=== PATIENT | female | born 1955 | race American Indian/Alaskan Native ===

== ENCOUNTER 2018-04-24 08:03 | Emergency (ER) | payer OTHER ==
[2018-04-24] MEDS ORDERED: BOOSTRIX IM ONE (09:20)
--- NOTE | 2018-04-24 09:25 | Emergency Department Report ---
Chief Complaint: Fall Stated Complaint: LACERATION ABOVE (R) EYE Time Seen by Provider: 04/24/18 09:13 - HPI History of Present Illness: 63 yo AA F presents to the ED after she fell earlier today and hit her head. No LOC. She has a right eyebrow lac. She complains of a headache and right elbow pain. She did not take anything for symptoms prior to presentation. Her PCP is Dr Morrison. She has a pmhx of liver transplant, previous ulcerative colitis. - ROS Review of Systems: Positive for headache, laceration and near syncope, right elbow pain negative for fever, nausea, vomiting, CP - Exam Vital Signs: Vital Signs 04/24/18 08:14 Temperature 98.5 F Pulse Rate 70 Respiratory 18 Rate Blood Pressure 142/89 O2 Sat by Pulse 100 Oximetry Physical Exam: Patient is awake and alert. Right eyebrow laceration about 1 cm. heart and lung sound normal to auscultation. No focal deficits. MSE screening note: Focused history and physical exam performed. Due to findings the following was ordered: I have ordered a CBC, CMP, troponin, TSH, EKG and CT head. Will update tetanus. ED Disposition for MSE Condition: Stable Referrals: PRIMARY CARE, [Primary Care Provider] - 3-5 Days
[2018-04-24 09:46] LABS: Basophils % (Auto) 0.4 % (0.0-1.8); Eosinophils # (Auto) 0.3 K/mm3 (0.0-0.4); Eosinophils % (Auto) 6.5 % (0.0-4.3); Hematocrit 33.9 % (30.3-42.9); Hemoglobin 11.4 gm/dl (10.1-14.3); Lymphocytes # (Auto) 0.9 K/mm3 (1.2-5.4); Lymphocytes % (Auto) 19.1 % (13.4-35.0); Mean Corpuscular HGB Conc 34 % (30-34); Mean Corpuscular Hemoglobin 33 pg (28-32); Mean Corpuscular Volume 97 fl (79-97); Monocytes # (Auto) 0.5 K/mm3 (0.0-0.8); Monocytes % (Auto) 9.9 % (0.0-7.3); Platelet Count 135 K/mm3 (140-440); Red Blood Count 3.49 M/mm3 (3.65-5.03); Red Cell Distribution Width 14.1 % (13.2-15.2)
[2018-04-24 10:07] LABS: Alanine Aminotransferase 28 units/L (7-56); Albumin 2.9 g/dL (3.9-5); BUN/Creatinine Ratio 26; Blood Urea Nitrogen 18 mg/dL (7-17); Calcium 8.4 mg/dL (8.4-10.2); Hemolysis Index 28
--- NOTE | 2018-04-24 10:18 | Emergency Department Report ---
ED Fall HPI - General Chief Complaint: Fall Stated Complaint: LACERATION ABOVE (R) EYE Time Seen by Provider: 04/24/18 09:13 Source: patient Mode of arrival: Ambulatory - History of Present Illness Initial Comments: 63-year-old female past medical history liver transplant 2000, colectomy, appendectomy presents with complaint of laceration to top right forehead status post fall while walking down stairs at home. Patient screened initially by Dr. Carrera. Complaint: fall - Related Data Previous Rx's Medication Instructions Recorded Last Taken Type Acetaminophen [Acetaminophen TAB] 500 mg PO Q6HR PRN #25 tablet 04/24/18 Unknown Rx Bacitracin Zinc Oint [Antibiotic 1 applicatio TP BID #1 tube 04/24/18 Unknown Rx Oint] Nitrofurantoin Monohyd/M-Cryst 100 mg PO BID #10 capsule 04/24/18 Unknown Rx [Macrobid 100 mg Capsule] Allergies Allergy/AdvReac Type Severity Reaction Status Date / Time prochlorperazine Allergy Unknown Verified 04/24/18 08:14 [From Compazine] ED Review of Systems ROS: Stated complaint: LACERATION ABOVE (R) EYE Other details as noted in HPI Constitutional: denies: chills, fever Eyes: denies: eye pain, eye discharge, vision change ENT: denies: ear pain, throat pain Respiratory: denies: cough, shortness of breath, wheezing Cardiovascular: denies: chest pain, palpitations Endocrine: no symptoms reported Gastrointestinal: denies: abdominal pain, nausea, diarrhea Genitourinary: denies: urgency, dysuria, discharge Musculoskeletal: denies: back pain, joint swelling, arthralgia Skin: denies: rash, lesions Neurological: denies: headache, weakness, paresthesias Psychiatric: denies: anxiety, depression Hematological/Lymphatic: denies: easy bleeding, easy bruising ED Past Medical Hx - Past Medical History Previous Medical History?: Yes Additional medical history: liver transplant 2000. colectomy: j-pouch 1997. joint replacements: shoulders, hips, and knees - Surgical History Past Surgical History?: Yes Hx Cholecystectomy: Yes Hx Appendectomy: Yes Additional Surgical History: liver transplant 2000. colectomy: j-pouch 1997. joint replacements: shoulders, hips, and knees - Social History Smoking Status: Never Smoker Substance Use Type: None - Medications Home Medications: Home Medications Medication Instructions Recorded Confirmed Last Taken Type Acetaminophen [Acetaminophen TAB] 500 mg PO Q6HR PRN #25 tablet 04/24/18 Unknown Rx Bacitracin Zinc Oint [Antibiotic 1 applicatio TP BID #1 tube 04/24/18 Unknown Rx Oint] Nitrofurantoin Monohyd/M-Cryst 100 mg PO BID #10 capsule 04/24/18 Unknown Rx [Macrobid 100 mg Capsule] ED Physical Exam - General Limitations: No Limitations General appearance: alert, in no apparent distress - Expanded Head Exam Expanded Head exam: Present: laceration, contusion 1 - 1.5cm diagonal laceration here - Eye Eye exam: Present: normal appearance, PERRL, EOMI - ENT ENT exam: Present: mucous membranes moist - Neck Neck exam: Present: normal inspection - Respiratory Respiratory exam: Present: normal lung sounds bilaterally. Absent: respiratory distress - Cardiovascular Cardiovascular Exam: Present: regular rate, normal rhythm. Absent: systolic murmur, diastolic murmur, rubs, gallop - GI/Abdominal GI/Abdominal exam: Present: soft, normal bowel sounds - Extremities Exam Extremities exam: Present: normal inspection - Back Exam Back exam: Present: normal inspection - Neurological Exam Neurological exam: Present: alert, oriented X3, CN II-XII intact, normal gait - Psychiatric Psychiatric exam: Present: normal affect, normal mood - Skin Skin exam: Present: warm, dry, intact, normal color. Absent: rash ED Course Vital Signs 04/24/18 04/24/18 04/24/18 08:14 09:50 10:46 Temperature 98.5 F Pulse Rate 70 Respiratory 18 18 16 Rate Blood Pressure 142/89 O2 Sat by Pulse 100 99 Oximetry - Laceration /Wound Repair Right Face Wound Location: face Wound Length (cm): 2 Wound's Depth, Shape: linear Irrigated w/ Saline (ccs): 500 Anesthesia: 1% Lidocaine Volume Anesthetic (ccs): 4 Wound Debrided: minimal Wound Repaired With: sutures Suture Size/Type: 5:0, nylon Number of Sutures: 4 Layer Closure?: No Sterile Dressing Applied?: Yes (Band-Aid) Progress: Area infiltrated with lidocaine 4 sutures placed, but anesthesia achieved. Irrigated with saline. Good wound closure achieved with sutures. Procedure tolerated well. ED Medical Decision Making - Lab Data Result diagrams: 04/24/18 09:35 04/24/18 09:35 - Medical Decision Making A/P: Fall, minor head injury, laceration, right elbow abrasion, right elbow contusion 1-as per Dr. Carrera known need for admission without any significant abnormality and labs vital signs or imaging 2-unremarkable, right elbow x-ray unremarkable sutures to be removed in 5-7 days , tetanus updated today, triple abx ointments to abrasions 3-Tylenol when necessary, EKG unremarkable 4- possible small leukocyte esterase and urine will cover empirically with Macrobid and patient is asymptomatic 5-vital signs stable for discharge, I advised patient's daughter to observe her for any abnormal signs behavior or concussive symptoms Critical care attestation.: If time is entered above; I have spent that time in minutes in the direct care of this critically ill patient, excluding procedure time. ED Disposition Clinical Impression: Asymptomatic bacteriuria Abrasion of right elbow Qualifiers: Encounter type: initial encounter Qualified Code(s): S50.311A - Abrasion of right elbow, initial encounter Laceration of right eyebrow Qualifiers: Encounter type: initial encounter Qualified Code(s): S01.111A - Laceration without foreign body of right eyelid and periocular area, initial encounter Fall Qualifiers: Encounter type: initial encounter Qualified Code(s): W19.XXXA - Unspecified fall, initial encounter Minor head injury without loss of consciousness Qualifiers: Encounter type: initial encounter Qualified Code(s): S09.90XA - Unspecified injury of head, initial encounter Disposition: - TO HOME OR SELFCARE Is pt being admited?: No Does the pt Need Aspirin: No Condition: Stable Instructions: Minor Head Injury (ED), Suture Care (ED), Contusion in Adults (ED ), Post Concussion Syndrome (ED) Additional Instructions: Sutures to be removed in 5-7 days Prescriptions: Acetaminophen [Acetaminophen TAB] 500 mg PO Q6HR PRN #25 tablet PRN Reason: Headache Bacitracin Zinc Oint [Antibiotic Oint] 1 applicatio TP BID #1 tube Nitrofurantoin Monohyd/M-Cryst [Macrobid 100 mg Capsule] 100 mg PO BID #10 capsule Referrals: [facility] [Provider Group] - 3-5 Days Forms: Accompanied Note Time of Disposition: 12:24
--- NOTE | 2018-04-24 10:19 | XRay Report ---
RIGHT ELBOW, 3 views: HISTORY: right elbow pain. Borderline bone mineralization. Moderate osteoarthritic changes are identified at the elbow joint. No evidence for fracture, bone lesion or large joint effusion. IMPRESSION: Borderline osteopenia. Osteoarthritis. No acute process identified.
[2018-04-24] MEDS ORDERED: TRIPLE ANTIBIOTIC TP ONE (10:34)
[2018-04-24] MEDS ORDERED: TYLENOL PO ONE (10:34)
--- NOTE | 2018-04-24 10:58 | Cat Scan Report ---
FINAL REPORT EXAM: CT HEAD/BRAIN WO CON HISTORY: Syncope TECHNIQUE: CT of the Head without IV contrast. PRIORS: None currently available. FINDINGS: There is no evidence for acute ischemia. There is no hemorrhage. There is no midline shift. There is no hydrocephalus. There is no mass. Age appropriate jung-white matter attenuation is noted. There is no calvarial fracture. The temporal bones demonstrate aerated mastoid air cells. The middle ears appear unremarkable. Paranasal sinuses are unremarkable. Globes are intact. IMPRESSION: No acute intracranial findings.
[2018-04-24 11:03] LABS: Bacteria,Urine 1+ /HPF (Negative); Bilirubin,Urine NEG (Negative); Blood,Urine NEG (Negative); Color,Urine Yellow (Yellow); Mucus,Urine FEW /HPF; Protein,Urine <15 mg/dL mg/dL (Negative); Urobilinogen,Urine < 2.0 mg/dL (<2.0)
[2018-04-24 12:51] VITALS: BP 135/88
== END 2018-04-24 12:49 | disposition home or self-care (01) ==
LOC: ED 08:03
DX: S01.111A Laceration without foreign body of right eyelid and periocular area, initial encounter (principal); S50.311A Abrasion of right elbow, initial encounter; S09.90XA Unspecified injury of head, initial encounter; Z90.49 Acquired absence of other specified parts of digestive tract; Z90.89 Acquired absence of other organs; Z98.890 Other specified postprocedural states; Z88.8 Allergy status to other drugs, medicaments and biological substances; W10.8XXA Fall (on) (from) other stairs and steps, initial encounter; Y99.8 Other external cause status; Y93.89 Activity, other specified; Y92.89 Other specified places as the place of occurrence of the external cause
CPT/HCPCS: 36415; 70450; 80053; 81001; 84443; 84484; 85025; 90471; 90715; 93005; 93010; A6250